=== PATIENT | male | born 2000 | race Hispanic/Latino ===

== ENCOUNTER 2019-05-02 16:21 | Emergency (ER) | payer OTHER ==
--- NOTE | 2019-05-02 17:43 | EDPHYS ---
Physician Documentation [facility] Name: Alexys Lopez Age: 18 yrs Sex: Male : 2000 Arrival Date: 05/02/2019 Time: 16:23 Bed 13 Private MD: ED Physician Saud Torres HPI: 05/01 16:52 This 18 yrs old Male presents to ER via Ambulatory with complaints of Fever, kb Dizziness. 16:52 The patient or guardian reports cough, that is intermittent, described as mild, with no kb sputum, flu symptoms, low-grade fever, myalgias. Onset: The symptoms/episode began/occurred 4 day(s) ago. Severity of symptoms: At their worst the symptoms were mild, moderate, in the emergency department the symptoms are unchanged. Modifying factors: The symptoms are alleviated by nothing, the symptoms are aggravated by nothing. Associated signs and symptoms: Pertinent positives: fever, Pertinent negatives: chest pain, diarrhea, ear ache, nausea, rhinorrhea, sore throat, vomiting. The patient has not experienced similar symptoms in the past. The patient has not recently seen a physician. Pt reports body aches, fever, headache that are mild right now, but reports they come back if he doesn't take medicine for it. States his mom, dad and sister have similar symptoms. Mom and sister were tested for COVID yesterday, results pending. . Historical: - Allergies: 16:35 No Known Allergies; hb - PMHx: 16:35 None; hb - PSHx: 16:35 None; hb - Immunization history:: Adult Immunizations up to date. - Social history:: Smoking status: Patient denies any tobacco usage or history of. ROS: 16:54 ENT: Negative for injury, pain, and discharge, Neck: Negative for injury, pain, and kb swelling, Cardiovascular: Negative for chest pain, palpitations, and edema, Abdomen/GI: Negative for abdominal pain, nausea, vomiting, diarrhea, and constipation, Back: Negative for injury and pain, MS/Extremity: Negative for injury and deformity, Skin: Negative for injury, rash, and discoloration, Neuro: Negative for headache, weakness, numbness, tingling, and seizure. 16:54 Constitutional: Positive for body aches, fatigue, fever, malaise. 16:54 Respiratory: Positive for cough, Negative for dyspnea on exertion, hemoptysis, orthopnea, pleurisy, shortness of breath, sputum production, wheezing. Exam: 16:54 Constitutional: This is a well developed, well nourished patient who is awake, alert, kb and in no acute distress. Head/Face: Normocephalic, atraumatic. ENT: Nares patent. No nasal discharge, no septal abnormalities noted. Tympanic membranes are normal and external auditory canals are clear. Oropharynx with no redness, swelling, or masses, exudates, or evidence of obstruction, uvula midline. Mucous membranes moist. Neck: Trachea midline, no thyromegaly or masses palpated, and no cervical lymphadenopathy. Supple, full range of motion without nuchal rigidity, or vertebral point tenderness. No Meningismus. Chest/axilla: Normal chest wall appearance and motion. Nontender with no deformity. No lesions are appreciated. Cardiovascular: Regular rate and rhythm with a normal S1 and S2. No gallops, murmurs, or rubs. Normal PMI, no JVD. No pulse deficits. Respiratory: Lungs have equal breath sounds bilaterally, clear to auscultation and percussion. No rales, rhonchi or wheezes noted. No increased work of breathing, no retractions or nasal flaring. Abdomen/GI: Soft, non-tender, with normal bowel sounds. No distension or tympany. No guarding or rebound. No evidence of tenderness throughout. Skin: Warm, dry with normal turgor. Normal color with no rashes, no lesions, and no evidence of cellulitis. MS/ Extremity: Pulses equal, no cyanosis. Neurovascular intact. Full, normal range of motion. Neuro: Awake and alert, GCS 15, oriented to person, place, time, and situation. Cranial nerves II-XII grossly intact. Motor strength 5/5 in all extremities. Sensory grossly intact. Cerebellar exam normal. Normal gait. Vital Signs: 16:32 BP 134 / 88; Pulse 87; Resp 16; Temp 99; Pulse Ox 97% on R/A; Weight 81.65 kg; Height 5 hb ft. 6 in. (167.64 cm); Pain 3/10; 16:32 Body Mass Index 29.05 (81.65 kg, 167.64 cm) hb MDM: 16:40 Patient medically screened. kb 16:55 Data reviewed: vital signs, nurses notes. Data interpreted: Pulse oximetry: on room air kb is 97 %. Interpretation: normal. 17:34 Counseling: I had a detailed discussion with the patient and/or guardian regarding: the kb historical points, exam findings, and any diagnostic results supporting the discharge/admit diagnosis, lab results, the need for outpatient follow up, a family practitioner, to return to the emergency department if symptoms worsen or persist or if there are any questions or concerns that arise at home. 05/01 16:36 Order name: Flu; Complete Time: 17:34 kb 05/01 16:36 Order name: Strep; Complete Time: 17:31 kb 05/01 17:31 Order name: Throat Culture EDMS Administered Medications: No medications were administered Disposition: 19:03 Co-signature as Attending Physician, Saud Torres MD. rn Disposition: 05/02/19 17:42 Discharged to Home. Impression: Acute upper respiratory infection, unspecified. - Condition is Stable. - Discharge Instructions: Upper Respiratory Infection, Adult, [id number], Viral Respiratory Infection, [id number]. - Medication Reconciliation Form, Thank You Letter, Antibiotic Education, Prescription Opioid Use form. - Follow up: Emergency Department; When: As needed; Reason: Worsening of condition. Follow up: Private Physician; When: 2 - 3 days; Reason: Recheck today's complaints, Continuance of care, Re-evaluation by your physician. Signatures: Dispatcher [employer] EDMS Lynda Negron, ASSISTANT SHIFT SUPERVISOR-C ASSISTANT SHIFT SUPERVISOR-Ckb Saud Torres MD MD rn Baxter, Heather, RN RN hb Lewis, Lynsay, RN RN ll1 Corrections: (The following items were deleted from the chart) 18:15 17:42 05/02/2019 17:42 Discharged to Home. Impression: Acute upper respiratory ll1 infection, unspecified. Condition is Stable. Forms are Medication Reconciliation Form, Thank You Letter, Antibiotic Education, Prescription Opioid Use. Follow up: Emergency Department; When: As needed; Reason: Worsening of condition. Follow up: Private Physician; When: 2 - 3 days; Reason: Recheck today's complaints, Continuance of care, Re-evaluation by your physician. kb
--- NOTE | 2019-05-02 17:43 | ER ---
Nurse's Notes [facility] Name: Alexys Lopez Age: 18 yrs Sex: Male : 2000 Arrival Date: 05/02/2019 Time: 16:23 Bed 13 Private MD: Diagnosis: Acute upper respiratory infection, unspecified Presentation: 05/01 16:32 Chief complaint: Subjective fever, malaise, body aches, dizziness, and nonproductive hb cough x 3-4 days. Mother and sister recently tested for covid, results pending. Coronavirus screen: Patient reports a subjective fever or greater than 100.4F, or cough, or shortness of breath, or difficulty breathing. Surgical mask placed on patient. Patient moved to private room, placed in contact and droplet isolation with eye protection until further assessment. Ebola Screen: No symptoms or risks identified at this time. Initial Sepsis Screen: Does the patient meet any 2 criteria? No. Patient's initial sepsis screen is negative. Does the patient have a suspected source of infection? No. Patient's initial sepsis screen is negative. Risk Assessment: Do you want to hurt yourself or someone else? Patient reports no desire to harm self or others. 16:32 Method Of Arrival: Ambulatory hb 16:32 Acuity: MAURICIO 3 hb 16:47 Onset of symptoms was April 29, 2019. ll1 Historical: - Allergies: 16:35 No Known Allergies; hb - PMHx: 16:35 None; hb - PSHx: 16:35 None; hb - Immunization history:: Adult Immunizations up to date. - Social history:: Smoking status: Patient denies any tobacco usage or history of. Screenin:46 Abuse screen: Denies threats or abuse. Nutritional screening: No deficits noted. ll1 Tuberculosis screening: No symptoms or risk factors identified. Fall Risk None identified. Total Velasquez Fall Scale indicates No Risk (0-24 pts). Assessment: 16:47 General: Appears in no apparent distress. Behavior is calm, cooperative. Pain: ll1 Complains of pain in body aches and DE LEON Pain currently is 6 out of 10 on a pain scale. Quality of pain is described as aching, Pain began 2-3 days ago. Is continuous. Neuro: Level of Consciousness is awake, alert, obeys commands, Reports headache. Neuro: Reports dizziness, generalized malaise. Cardiovascular: No deficits noted. Respiratory: Reports cough that is dry, Airway is patent Trachea midline Respiratory effort is even, unlabored, Respiratory pattern is regular, symmetrical, Breath sounds are clear bilaterally. Onset: The symptoms/episode began/occurred 3 days ago. GI: No deficits noted. Musculoskeletal: Reports + body aches. 17:43 Reassessment: provider at bedside at this time updated pt on results. tw2 Vital Signs: 16:32 BP 134 / 88; Pulse 87; Resp 16; Temp 99; Pulse Ox 97% on R/A; Weight 81.65 kg; Height 5 hb ft. 6 in. (167.64 cm); Pain 3/10; 16:32 Body Mass Index 29.05 (81.65 kg, 167.64 cm) hb ED Course: 16:23 Patient arrived in ED. ag5 16:26 Lynda Negr[facility]C [facility]. kb 16:26 Saud Torres MD is Attending Physician. kb 16:35 Triage completed. hb 16:35 Arm band placed on. 16:41 Kwesi Hurley, DON is Primary Nurse. ll1 16:47 Patient has correct armband on for positive identification. Bed in low position. Call ll1 light in reach. Side rails up X 1. 16:48 Flu and/or RSV swab sent to lab. Strep swab sent to lab. kj1 17:23 Strep Sent. kj1 17:24 Flu Sent. kj1 18:13 No provider procedures requiring assistance completed. Patient did not have IV access ll1 during this emergency room visit. Administered Medications: No medications were administered Outcome: 17:42 Discharge ordered by MD. kb 18:13 Discharged to home ambulatory. ll1 18:13 Condition: good 18:13 Discharge instructions given to patient, Instructed on discharge instructions, follow up and referral plans. Demonstrated understanding of instructions, follow-up care. 18:15 Patient left the ED. ll1 Signatures: Lynda Negron FNP-C FNP-Ckb Baxter, Heather, RN RN Viki Garcia RN RN tw2 Sarah Guillermo ag5 Shellie Negron kj1 Kwesi Hurley, DON OCHOA 1
[2019-05-02 18:22] VITALS: BP 134/88; TEMP 99; O2SAT 97
== END 2019-05-02 18:15 | disposition home or self-care (01) ==
LOC: ER 16:21
DX: J06.9 Acute upper respiratory infection, unspecified (principal)
CPT/HCPCS: 87070; 87081; 87804; 99283